=== PATIENT | male | born 1960 | race Caucasian/White ===

== ENCOUNTER → 2016-12-13 | Outpatient (CLI) | payer BC | LOC: CFH 16:00 | PROVIDERS: ATTEND Internal Medicine Cardiovascular Disease | DX: I08.1 Rheumatic disorders of both mitral and tricuspid valves (principal); I09.89 Other specified rheumatic heart diseases | CPT/HCPCS: 93306 ==

== ENCOUNTER 2018-08-20 04:56 | Emergency (ER) | payer BC, OTHER ==
[~2018-08-20] VITALS: Ht 175.3 cm; Wt 78.0 kg
--- NOTE | 2018-08-20 05:13 | NUR ---
PT. PLACED ON CONTINUOUS PULSE OX, B/P, AND HEART MONITORS. DR. NOEL AT TO EVAL PT. AND DISCUSS POC WITH PT. AND . CALL LIGHT IN REACH. ALL SAFETY MEASURES OBSERVED. AWITING ORDERS.
--- NOTE | 2018-08-20 05:19 | NUR ---
EKG WAS COMPLETED IN TRIAGE AND PRESENTED TO [facility].
[2018-08-20 05:45] LABS: BASOPHILS # (AUTO) 0.03 x10^3/uL (0-0.1); BASOPHILS % (AUTO) 0 % (0-1); EOSINOPHILS # (AUTO) 0.47 x10^3/uL (0-0.4); EOSINOPHILS % (AUTO) 5 % (1-7); LYMPHOCYTES # (AUTO) 1.11 x10^3/uL (1-3.4); LYMPHOCYTES % (AUTO) 11 % (22-44); MD NO; MEAN CORPUSCULAR HEMOGLOBIN 30.9 pg (27.5-34.5); MEAN CORPUSCULAR HGB CONC 34.2 g/dL (33.2-36.2); MEAN CORPUSCULAR VOLUME 90.3 fL (81-97); MEAN PLATELET VOLUME 6.6 fL (7.4-10.4); MONOCYTES # (AUTO) 0.36 x10^3/uL (0.2-0.8); MONOCYTES % (AUTO) 4 % (2-9); NEUTROPHILS # (AUTO) 8.38 x10^3/uL (1.8-6.8); NEUTROPHILS % (AUTO) 81 % (42-75); PLATELET COUNT 406 x10^3/uL (130-400); RED BLOOD COUNT 6.57 x10^6/uL (4.38-5.82); RED CELL DISTRIBUTION WIDTH 14.3 % (9.4-14.8)
[2018-08-20 05:58] LABS: ALBUMIN 3.9 g/dL (3.4-5.0); ANION GAP 4 mmol/L (5-15); CALCIUM 8.7 mg/dL (8.5-10.1); CHLORIDE 108 mmol/L (98-107); CREATININE 1.12 mg/dL (0.7-1.3)
[2018-08-20 06:02] LABS: TROPONIN I < 0.015 ng/mL (0.000-0.045)
[2018-08-20 06:11] VITALS: BP 138/91
--- NOTE | 2018-08-20 06:12 | NUR ---
PT. DENIES NEEDS AT THIS TIME. REPORTS PALPITAIONS "ARE LESS OFTEN". NADN. REMAINS AT BS FOR SUPPORT.
[2018-08-20 06:48] LABS: T4 (THYROXINE) 9.5 mcg/dL (4.5-12.1)
--- NOTE | 2018-08-20 06:53 | NUR ---
BS REPORT TO ADOLFO LYNN.
--- NOTE | 2018-08-20 06:56 | NUR ---
RECEIVED REPORT FROM ADOLFO SYKES. PT RESTING ON KAREN. NADN. ESPINALS. FAMILY REMAINS AT BEDSIDE.
[2018-08-20 06:57] LABS: THYROID STIMULATING HORMONE 3.11 mIU/L (0.358-3.740)
--- NOTE | 2018-08-20 07:10 | NUR ---
PT CHART REVIEWED AND PLACED FOR RECHECK.
--- NOTE | 2018-08-20 07:30 | NUR ---
Patient/Caregiver given discharge instructions and they have confirmed that they understand the instructions. Patient ambulatory with steady gait.
== END 2018-08-20 07:41 | disposition home or self-care (01) ==
LOC: ED 06:42
DX: R00.2 Palpitations (principal); J45.909 Unspecified asthma, uncomplicated
CPT/HCPCS: 36415; 71046; 80048; 82040; 84436; 84443; 84484; 85025; 93005; 99284

== ENCOUNTER → 2018-09-01 | Outpatient (CLI) | payer OTHER | END | disposition home or self-care (01) | LOC: CARD 10:40 | PROVIDERS: ATTEND Internal Medicine Cardiovascular Disease | DX: R00.2 Palpitations (principal) | CPT/HCPCS: 93017 ==

== ENCOUNTER 2019-06-15 16:05 | Emergency (ER) | payer OTHER ==
[~2019-06-15] VITALS: Ht 175.3 cm; Wt 78.0 kg
[2019-06-15] MEDS ORDERED: ALBUTEROL/IPRATROPIUM 2.5MG/0.5MG, 3 ML ONE (16:17)
--- NOTE | 2019-06-15 16:29 | NUR ---
PT TO ED FOR CHEST TIGHTNESS D/T ASTHMA. PT STATES HE WAS UNDER THE HOUSE TODAY AND INHALER NO LONGER HELPED. PT CONNECTE DTO ALL MONIOTRS. VSS. PT WAS SOB WTIH TIGHTNESS PRIOR TO RT TX. AFTER, PT STATES SOB AND TIGHTNESS HAS RESOLVED. PT CONNECTED TO ALL MONITORS. VSS. STEVE TUBBS AND DR. BARRIENTOS TO BS FOR ASSESSMENT. AWAITING ORDERS.
[2019-06-15 16:31] VITALS: BP 151/111
== END 2019-06-15 17:36 | disposition home or self-care (01) ==
LOC: ED 17:06
DX: J45.31 Mild persistent asthma with (acute) exacerbation (principal); Z86.79 Personal history of other diseases of the circulatory system
CPT/HCPCS: 93005; 94640; 99283

== ENCOUNTER 2020-06-15 12:03 | Observation (INO) | payer OTHER ==
[~2020-06-15] VITALS: Ht 175.3 cm; Wt 76.3 kg
[2020-06-15] MEDS ORDERED: DILTIAZEM 5 MG/ML, 5ML IVPush STA (12:36)
[2020-06-15] MEDS ORDERED: ASPIRIN 81 MG TABLET CHEW ONE (12:50)
[2020-06-15] MEDS ORDERED: DILTIAZEM 5 MG/ML, 5ML ONE ×2 (12:50→13:51)
--- NOTE | 2020-06-15 12:56 | NUR ---
SEEN IN ED IN [place], [place] FOR IRREGULAR HEARTBEAT. PER SPOUSE, PT CONVERTED PRIOR TO BEING SEEN. ASA 81MG TAKEN AT 1000. REPORTS CHEST DISCOMFORT LT UPPER CHEST. DENIES SOB, DYSPNEA. HX OF ASTHMA; USED INHALER THIS AM
[2020-06-15 12:57] LABS: MEAN CORPUSCULAR HEMOGLOBIN 30.6 pg (27.5-34.5); MEAN CORPUSCULAR HGB CONC 33.8 g/dL (33.2-36.2); MEAN PLATELET VOLUME 7.1 fL (7.4-10.4); PLATELET COUNT 395 x10^3/uL (130-400); RED BLOOD COUNT 7.31 x10^6/uL (4.38-5.82); RED CELL DISTRIBUTION WIDTH 15.1 % (9.4-14.8)
[2020-06-15] MEDS ORDERED: SODIUM CHLORIDE FLUSH 10ML SYR IVF ONE (13:00)
[2020-06-15] MEDS ORDERED: ASPIRIN 81 MG TABLET CHEW PO ONE (13:00)
--- NOTE | 2020-06-15 13:04 | NUR ---
ASA AND CARDIZEM GIVEN PER EMAR
--- NOTE | 2020-06-15 13:09 | NUR ---
HEART RATE DECREASING, BUT VARIABLE
[2020-06-15] MEDS ORDERED: ZINC (13:12)
[2020-06-15] MEDS ORDERED: MULTIVITAMIN (13:12)
[2020-06-15] MEDS ORDERED: VITAMIN D3 (13:12)
[2020-06-15] MEDS ORDERED: ALBUTEROL (13:12)
--- NOTE | 2020-06-15 13:32 | NUR ---
PT ENDORSED TO BREAK RN.
[2020-06-15 13:50] LABS: ALANINE AMINOTRANSFERASE 75 U/L (12-78); ALBUMIN 3.9 g/dL (3.4-5.0); ANION GAP 5 mmol/L (5-15); CALCIUM 8.9 mg/dL (8.5-10.1); CHLORIDE 112 mmol/L (98-107)
[2020-06-15 13:53] LABS: MD YES
[2020-06-15 13:54] LABS: ALKALINE PHOSPHATASE 96 U/L (45-117); CREATININE 0.94 mg/dL (0.7-1.3); TOTAL PROTEIN 7.1 g/dL (6.4-8.2); TROPONIN I < 0.015 ng/mL (0.000-0.045)
--- NOTE | 2020-06-15 13:54 | NUR ---
BREAK RN: DR BARAJAS AT BEDSIDE, PT ASSESSMENT, HEART RHYTHM DISCUSSED AND QUESTIONS ANSWERED. NEW ORDERS REC'D. PT VERBALIZES UNDERSTANDING OF PLAN FOR ADMIT.
[2020-06-15 13:57] LABS: <RBC MORPHOLOGY> NORMAL; BAND#(MANUAL) 1.43 x10^3/uL; BANDS%(MANUAL) 10 % (0-7); EOS#(MANUAL) 0.14 x10^3/uL (0.0-0.4); EOS% (MANUAL) 1 % (1-7); LYMPH#(MANUAL) 0.86 x10^3/uL (1-3.4); LYMPHS% (MANUAL) 6 % (22-44); MONOS#(MANUAL) 0.29 x10^3/uL (0.3-2.7); MONOS% (MANUAL) 2 % (2-9); REACTIVE LYMPHS # (MANUAL) 0.29 x10^3/uL (0-0); REACTIVE LYMPHS % (MANUAL) 2 % (0-0); SEGS% (MANUAL) 79 % (42-75)
[2020-06-15 13:58] LABS: <PLATELET ESTIMATE> ADEQUATE; <PLT MORPHOLOGY> NORMAL PLT MORPH
--- NOTE | 2020-06-15 13:59 | NUR ---
BREAK RN: PT SPONTANEOUSLY CONVERTED TO SR PRIOR TO RECIEVING 2ND DILT DOSE. DR SALINAS UPDATED.
[2020-06-15] MEDS ORDERED: DILTIAZEM 5 MG/ML, 5ML IVPush ONE (14:00)
[2020-06-15] MEDS: DILTIAZEM 125 MG in SODIUM CHLORIDE 0.9% 100 ML IV SCH ×2 (14:15→16:13)
--- NOTE | 2020-06-15 14:18 | NUR ---
DR MATA AT BEDSIDE, POC FOR DILT GTT WITH NO BOLUS DOSE DISCUSSED. DILT GTT STARTED AT 10MG/HR AND INFUSING W/O DIFFICULTY.
[2020-06-15] MEDS ORDERED: SODIUM CHLORIDE 0.9% 1,000ML IVBOLUS ONE (14:30)
--- NOTE | 2020-06-15 14:30 | NUR ---
PT REPORT FROM ADOLFO REYES. PT CARE TO BE RESUMED. PT RESTING QUIETLY ON GURNEY. CARDIAC MONITORING CONTINUING. DILTIAZEM AND NS INFUSING.
[2020-06-15 15:16] LABS: INTERNATIONAL NORMALIZED RATIO 1.04 (0.93-1.1)
[2020-06-15] MEDS ORDERED: POLYETHYLENE GLYCOL 17 GM PACKET PO PRN (15:30)
[2020-06-15] MEDS ORDERED: ONDANSETRON ODT 4 MG PO PRN (15:30)
[2020-06-15] MEDS ORDERED: DILTIAZEM 125 MG in SODIUM CHLORIDE 0.9% 100 ML IV SCH (15:30)
[2020-06-15] MEDS ORDERED: ACETAMINOPHEN 325 MG TABLET PO PRN (15:30)
[2020-06-15] MEDS ORDERED: SENNA/DOCUSATE TABLET PO PRN (15:30)
[2020-06-15] MEDS ORDERED: ONDANSETRON 2MG/ML, 2ML IVPush PRN (15:30)
[2020-06-15] MEDS ORDERED: ENOXAPARIN 40 MG/0.4 ML SQ SCH (15:30)
[2020-06-15] MEDS ORDERED: ALBUTEROL HFA 90 MCG/SPRAY INH PRN (16:00)
[2020-06-15] MEDS ORDERED: ENOXAPARIN 40 MG/0.4 ML ONE (16:03)
[2020-06-15] MEDS: LACTATED RINGERS 1,000 ML IV SCH (16:17)
--- NOTE | 2020-06-15 16:21 | NUR ---
NS BOLUS INFUSED (2L TOTAL). CARDIZEM INFUSING AT 10ML/HR VIA PUMP THROUGH RT FA IV; SITE PATENT. LR HUNG, INFUSING AT 125ML/HR VIA DIAL-AFLOW THROUGH LT FA IV;SITE PATENT. CARDIAC MONITORING CONTINUING: NSR. PT RESTING QUIETLY ON GURNEY, SIDE RAIL UP X1, CALL LIGHT W/IN REACH, SPOUSE IN ROOM.
--- NOTE | 2020-06-15 17:12 | NUR ---
HOSPITAL BED TO PT ROOM.
--- NOTE | 2020-06-15 17:15 | NUR ---
PT EATING FOOD SUPPLIED BY SPOUSE FROM [facility]
--- NOTE | 2020-06-15 17:21 | NUR ---
COVID TEST IN PT ORDERS, CURRENTLY UNCOLLECTED. SPOKE W/ PT RE: COVID SX. PT DENIES SX, EXCEPT FOR SORE THROAT. STATES "THE DOCTOR WANTS TO DO IT BECAUSE WE TRAVELED FROM [place] YESTERDAY." CONSULTED DR PECK RE: COVID TESTING ORDER. PHYSICIAN DID NOT COLLECT THE SPECIMEN.
--- NOTE | 2020-06-15 17:36 | NUR ---
COVID AND STREP SPECIMEN COLLECTED; WILL BE WALKED TO LAB.
--- NOTE | 2020-06-15 18:50 | NUR ---
RESTING QUIETLY ON BED, TALKING ON PHONE. CARDIZEM INFUSING AT 10ML/HR VIA PUMP. LR INFUSING.
--- NOTE | 2020-06-15 19:01 | NUR ---
BEDSIDE REPORT TO ADOLFO HO. PT CARE TRANSFERRED.
[2020-06-15] MEDS ORDERED: CALCIUM CARBONATE 500 MG TAB.CHEW ONE (19:50)
[2020-06-15] MEDS ORDERED: CALCIUM CARBONATE 500 MG TAB.CHEW PO PRN (20:00)
--- NOTE | 2020-06-16 00:24 | NUR ---
RN ROUNDING ON PT. PT HR IN 50S. CARDIZEM STOPPED. RN CALLED ARLEY THOMAS. ARLEY ORDERED TO STOP CARDIZEM GTT. WCTM.
--- NOTE | 2020-06-16 00:35 | NUR ---
REPORT RECIEVED FROM ADOLFO HO. PT RESTING IN BED, ALL MONITORS IN PLACE, PT STATES NO NEEDS AT THIS TIME
--- NOTE | 2020-06-16 01:53 | NUR ---
PT RESTING IN BED, HEART RATE IN HIGH 50'S. PT SMILING AND STATES NO NEEDS AT THIS TIME
--- NOTE | 2020-06-16 02:47 | NUR ---
PT SLEEPING IN BED, RESPIRATIONS EVEN/UNLABORED, ALL MONITORS IN PLACE
--- NOTE | 2020-06-16 03:50 | NUR ---
report given to tang huynh
--- NOTE | 2020-06-16 04:00 | NUR ---
PT RESTING IN BED, RESP EVEN/UNLABORED, AWAITING ROOM TO BE CLEANED FOR TRANSPORT TO FLOOR
--- NOTE | 2020-06-16 05:13 | NUR ---
REPORT GIVEN TO ADOLFO HO
[2020-06-16 05:31] LABS: CHLORIDE 113 mmol/L (98-107)
[2020-06-16 05:34] VITALS: BP 122/77
[2020-06-16 05:41] LABS: BASOPHILS % (AUTO) 1 % (0-1); EOSINOPHILS % (AUTO) 5 % (1-7); LYMPHOCYTES % (AUTO) 11 % (22-44); MEAN CORPUSCULAR HGB CONC 33.8 g/dL (33.2-36.2); MEAN PLATELET VOLUME 7.1 fL (7.4-10.4); MONOCYTES % (AUTO) 4 % (2-9); NEUTROPHILS % (AUTO) 80 % (42-75); PLATELET COUNT 356 x10^3/uL (130-400); RED BLOOD COUNT 6.26 x10^6/uL (4.38-5.82); RED CELL DISTRIBUTION WIDTH 15.1 % (9.4-14.8)
[2020-06-16 05:45] LABS: ALANINE AMINOTRANSFERASE 57 U/L (12-78); ALBUMIN 3.2 g/dL (3.4-5.0); ALKALINE PHOSPHATASE 74 U/L (45-117); ANION GAP 3 mmol/L (5-15); CALCIUM 8.5 mg/dL (8.5-10.1); CREATININE 0.96 mg/dL (0.7-1.3); FREE T4 (FREE THYROXINE) 1.02 ng/dL (0.76-1.46); TOTAL PROTEIN 5.8 g/dL (6.4-8.2)
[2020-06-16] MEDS: LACTATED RINGERS 1,000 ML IV SCH (05:58)
[2020-06-16 06:20] LABS: MD SCAN
[2020-06-16] MEDS ORDERED: ASPI-515 PO (09:14)
[2020-06-16] MEDS ORDERED: DILT120C11 PO (09:14)
[2020-06-16 09:24] VITALS: BP 155/89
[2020-06-16] MEDS ORDERED: DILTIAZEM 120 MG CAP.ER.12H PO SCH (09:30)
[2020-06-16 09:36] LABS: MICROSCOPIC INDICATED
== END 2020-06-16 12:10 | disposition home or self-care (01) ==
LOC: ED 13:47 → EDIP 15:21 → INTOOBSV 15:21 → 4EST 06-16 05:27
PROVIDERS: ADMIT Family Medicine; ATTEND Family Medicine
DX: I48.20 Chronic atrial fibrillation, unspecified (principal); Z20.828 Contact with and (suspected) exposure to other viral communicable diseases; I48.0 Paroxysmal atrial fibrillation; D75.1 Secondary polycythemia; J02.9 Acute pharyngitis, unspecified; D72.829 Elevated white blood cell count, unspecified; J45.909 Unspecified asthma, uncomplicated; K20.0 Eosinophilic esophagitis; I49.3 Ventricular premature depolarization; D72.825 Bandemia; D61.818 Other pancytopenia; Z72.0 Tobacco use; Z79.899 Other long term (current) drug therapy
CPT/HCPCS: 36415; 71045; 80053; 81001; 83036; 83735; 83880; 84439; 84443; 84481; 84484; 85025; 85610; 87081; 87880; 93005; 96361; 96365; 96366; 96372; 96376; 99285; G0378; J1650; J7030; J7120; U0003

== ENCOUNTER 2020-06-21 12:46 | Emergency (ER) | payer OTHER ==
[~2020-06-21] VITALS: Ht 175.3 cm; Wt 75.0 kg
[~2020-06-21 12:46] MED LIST: ALBUTEROL; ASPI-515 PO; DILT120C11 PO; MULTIVITAMIN; VITAMIN D3; ZINC
[2020-06-21] MEDS ORDERED: DILTIAZEM 5 MG/ML, 5ML ONE ×2 (13:27→13:51)
[2020-06-21] MEDS ORDERED: ASPIRIN 81 MG TABLET CHEW ONE (13:29)
[2020-06-21] MEDS ORDERED: METOPROLOL 1 MG/ML, 5ML ONE (13:29)
[2020-06-21] MEDS ORDERED: ASPIRIN 81 MG TABLET CHEW PO ONE (13:30)
[2020-06-21] MEDS ORDERED: METOPROLOL 1 MG/ML, 5ML IVPush PRN (13:30)
--- NOTE | 2020-06-21 13:47 | NUR ---
Pt arrives with HR in 150's. Pt states recent hospitilization for same. Palpitations began this morning. Denies CP, SOB, nausea. PIV started, given Diltiazem push, HR now 100-120's.
[2020-06-21 13:48] LABS: BASOPHILS % (AUTO) 0 % (0-1); EOSINOPHILS % (AUTO) 2 % (1-7); LYMPHOCYTES % (AUTO) 5 % (22-44); MEAN CORPUSCULAR HEMOGLOBIN 30.6 pg (27.5-34.5); MEAN CORPUSCULAR HGB CONC 33.9 g/dL (33.2-36.2); MONOCYTES % (AUTO) 4 % (2-9); NEUTROPHILS % (AUTO) 89 % (42-75); PLATELET COUNT 434 x10^3/uL (130-400); RED BLOOD COUNT 7.37 x10^6/uL (4.38-5.82); RED CELL DISTRIBUTION WIDTH 15.4 % (9.4-14.8)
--- NOTE | 2020-06-21 13:56 | NUR ---
Follow up dose of Dilt per Dr Juarez.
[2020-06-21] MEDS ORDERED: DILTIAZEM 5 MG/ML, 5ML IVPush ONE ×2 (14:00→14:30)
[2020-06-21 14:07] LABS: ALANINE AMINOTRANSFERASE 83 U/L (12-78); ALBUMIN 4.2 g/dL (3.4-5.0); ANION GAP 7 mmol/L (5-15); CALCIUM 9.1 mg/dL (8.5-10.1); CHLORIDE 107 mmol/L (98-107); CREATININE 1.17 mg/dL (0.7-1.3)
[2020-06-21 14:11] LABS: ALKALINE PHOSPHATASE 105 U/L (45-117); BILIRUBIN,TOTAL 1.2 mg/dL (0.2-1.0); TOTAL PROTEIN 7.5 g/dL (6.4-8.2); TROPONIN I < 0.015 ng/mL (0.000-0.045)
[2020-06-21 14:12] LABS: MD SCAN
[2020-06-21] MEDS ORDERED: SODIUM CHLORIDE FLUSH 10ML SYR IVF ONE (14:30)
--- NOTE | 2020-06-21 14:57 | NUR ---
Break rn- pt resting in bed, call light in reach.
--- NOTE | 2020-06-21 15:47 | NUR ---
Lab at bedside for therapeutic phlebotomy.
[2020-06-21] MEDS ORDERED: PROPOFOL 10 MG/ML, 20ML IVPush ONE (16:00)
[2020-06-21] MEDS ORDERED: PROPOFOL 10 MG/ML, 20ML ONE (16:17)
--- NOTE | 2020-06-21 16:47 | NUR ---
Pt converted to NSR on his own. VS updated.
[2020-06-21 17:42] VITALS: BP 121/72
== END 2020-06-21 17:44 | disposition home or self-care (01) ==
LOC: ED 14:52
DX: I48.0 Paroxysmal atrial fibrillation (principal); D75.1 Secondary polycythemia; R07.89 Other chest pain; I49.9 Cardiac arrhythmia, unspecified; I48.91 Unspecified atrial fibrillation; J45.909 Unspecified asthma, uncomplicated
CPT/HCPCS: 36415; 71045; 80053; 82668; 84484; 85025; 93005; 96374; 99195; 99285

== ENCOUNTER 2020-06-28 12:50 | Outpatient (CLI) | payer OTHER ==
[2020-07-01] MEDS ORDERED: REGADENOSON 0.4 MG/5 ML SYRINGE ONE (07:45)
== END 2020-06-28 23:59 | disposition home or self-care (01) ==
LOC: CFH 12:50
PROVIDERS: ATTEND Internal Medicine Cardiovascular Disease
DX: I34.0 Nonrheumatic mitral (valve) insufficiency (principal); I48.91 Unspecified atrial fibrillation; I10 Essential (primary) hypertension
CPT/HCPCS: 93306

== ENCOUNTER → 2020-07-01 | Outpatient (CLI) | payer OTHER | END | disposition home or self-care (01) | LOC: CFH 12:19 | PROVIDERS: ATTEND Internal Medicine Cardiovascular Disease | DX: I25.89 Other forms of chronic ischemic heart disease (principal); I48.91 Unspecified atrial fibrillation | CPT/HCPCS: 78452; 93017; A9502 ==

== ENCOUNTER 2020-07-22 13:01 | Outpatient (CLI) | payer OTHER ==
[2020-07-22] MEDS ORDERED: OMNIPAQUE 350 MG/ML, 100ML BOTTLE ONE (13:50)
== END 2020-07-22 23:59 | disposition home or self-care (01) ==
LOC: CFH 13:01
PROVIDERS: ATTEND Physician Assistant Medical
DX: I25.10 Atherosclerotic heart disease of native coronary artery without angina pectoris (principal); I48.91 Unspecified atrial fibrillation; R00.2 Palpitations
CPT/HCPCS: 75574; Q9967